=== PATIENT | female | born 1990 | race Caucasian/White ===

== ENCOUNTER 2017-07-22 09:34 | Inpatient (IN) | payer OTHER ==
[~2017-07-22] VITALS: Ht 165.1 cm; Wt 79.0 kg
[2017-07-22] VITALS (83 sets, daily range): BP systolic 91–152; BP diastolic 50–101; PULSE 56–126; RESP 16–20; TEMP 97.8–99.4
[~2017-07-22 09:34] MED LIST: MACR100C PO
[2017-07-22] MEDS ORDERED: LACTATED RINGER'S 1000 ML INJ 1,000 ML IV PRN (10:20)
--- NOTE | 2017-07-22 10:28 | HHI.HP ---
HPI Chief Complaint Water broke Date Seen: Jul 22, 2017 Time Seen: 10:22 Travel History International Travel<30 Days: No Contact w/Intl Traveler<30Days: No Known Affected Area: No History of Present Illness HPI 27-year-old white female at [address] Rubio for care presents complaining of her water leaking since early this morning. Her amnisure is positive today and she continues to leak fluid. heart rate tracing is reactive she is rubin irregularly Weeks Gestation: 38 Para: 0 : 2 Miscarriage: 1 History Past Medical History Narrative Medical Asthma with as needed inhaler Obstetric History Obstetric History 1 early loss Social History Alcohol Use: No Tobacco Use: No Substance Abuse: No Allergies-Medications (Allergen,Severity, Reaction): Coded Allergies: fexofenadine (Unverified Allergy, Mild, HIVES, 12/04/16) Home Meds Active Scripts Nitrofurantoin Monohyd Macro (Macrobid) 100 Mg Cap, 100 MG PO BID for 7 Days, CAP Prov:Kun Alcaraz MD 01/26/16 Review of Systems General / Constitutional: No: Fever, Weight Gain, Chills, Other Eyes: No: Diploplia, Blurred Vision, Visual changes, Pain, Photophobia HENT: No: Headaches, Vertigo, Lightheadedness Cardiovascular: No: Irregular Rhythm, Chest Pain or Discomfort, Palpitations, Tachycardia, Syncope, Varicosities, Edema, Cyanosis Respiratory: No: Cough, Short of Breath, Other Gastrointestinal: No: Nausea, Vomiting, Diarrhea Genitourinary: No: Decreased Urinary Output, Oliguria Musculoskeletal: No: Limited ROM, Weakness, Cramping, Edema, Pain Skin: No Rash, No Itching, No Dryness, No Lumps, No Change in Pigmentation, No Change in Nails, No Alopecia, No Lesions Neurologic: No: Weakness, Dizziness, Syncope, Focal Abnormalities, Coordination Problem, Headache, Slurred Speech, Seizures Psychiatric: No: Depression, Suicidal Ideations, Homicidal Ideation Endocrine: No: Heat Intolerance, Cold Intolerance, Polydipsia, Polyuria, Other Physical Exam Narrative GENERAL: Well-nourished, well-developed patient. SKIN: Warm and dry. HEAD: Normocephalic and atraumatic. EYES: No scleral icterus. No injection or drainage. ENT: No nasal drainage noted. Mucous membranes pink. Airway patent. NECK: Supple, trachea midline. No JVD. CARDIOVASCULAR: Regular rate and rhythm without murmurs, gallops, or rubs. RESPIRATORY: Breath sounds equal bilaterally. No accessory muscle use. BREASTS: Bilateral exam showed no masses , no retractions, no nipple discharge. ABDOMEN/GI: Abdomen soft, non-tender, bowel sounds present, no rebound, no guarding Gravid to [-38] weeks size Fundal Height: [38-] GENITOURINARY: External Genitalia: intact and normal in appearance BUS glands: [-] Cervix: [-post] Dilatation: [-2-3] Effacement: [60-] Station: [-1] Presentation: [-vtx] Membranes: [ ruptured] Uterine Contractions: [CTXs irreg-] FHT's: Category: [-1] Baseline: [-133] Reactive: [R-] Variability: [-mod] Decels: [-none] EXTREMITIES: No cyanosis or edema. BACK: Nontender without obvious deformity. No CVA tenderness. NEUROLOGICAL: Awake and alert. Motor and sensory grossly within normal limits. Five out of 5 muscle strength in all muscle groups. Normal speech. Caprini VTE Risk Assessment Caprini VTE Risk Assessment: No/Low Risk (score <= 1) Caprini Risk Assessment Model Point Value = 1 Point Value = 2 Point Value = 3 Point Value = 5 Age 41-60 Minor surgery BMI > 25 kg/m2 Swollen legs Varicose veins or History of unexplained or recurrent spontaneous Oral contraceptives or hormone replacement Sepsis (< 1 month) Serious lung disease, including pneumonia (< 1 month) Abnormal pulmonary function Acute myocardial infarction Congestive heart failure (< 1 month) History of inflammatory bowel disease Medical patient at bed rest Age 61-74 Arthroscopic surgery Major open surgery (> 45 min) Laparoscopic surgery (> 45 min) Malignancy Confined to bed (> 72 hours) Immobilizing plaster cast Central venous access Age >= 75 History of VTE Family history of VTE Factor V Leiden Prothrombin [id number] Lupus anticoagulant Anticardiolipin antibodies Elevated serum homocysteine Heparin-induced thrombocytopenia Other congenital or acquired thrombophilia Stroke (< 1 month) Elective arthroplasty Hip, pelvis, or leg fracture Acute spinal cord injury (< 1 month) Prophylaxis Regimen Total Risk Factor Score Risk Level Prophylaxis Regimen 0-1 Low Early ambulation 2 Moderate Order ONE of the following: *Sequential Compression Device (SCD) *Heparin 5000 units SQ BID 3-4 Higher Order ONE of the following medications: *Heparin 5000 units SQ TID *Enoxaparin/Lovenox 40 mg SQ daily (WT < 150 kg, CrCl > 30 mL/min) *Enoxaparin/Lovenox 30 mg SQ daily (WT < 150 kg, CrCl > 10-29 mL/min) *Enoxaparin/Lovenox 30 mg SQ BID (WT < 150 kg, CrCl > 30 mL/min) AND/OR *Sequential Compression Device (SCD) 5 or more Highest Order ONE of the following medications: *Heparin 5000 units SQ TID (Preferred with Epidurals) *Enoxaparin/Lovenox 40 mg SQ daily (WT < 150 kg, CrCl > 30 mL/min) *Enoxaparin/Lovenox 30 mg SQ daily (WT < 150 kg, CrCl > 10-29 mL/min) *Enoxaparin/Lovenox 30 mg SQ BID (WT < 150 kg, CrCl > 30 mL/min) AND *Sequential Compression Device (SCD) Data Data Orders Orders Ob (2e) Additional Admit Info (07/22/17 10:14) Admit To Inpatient (07/22/17 ) Vital Signs (Adult) .Per protocol (07/22/17 10:20) Heart (07/22/17 10:20) Amnioinfusion (07/22/17 10:20) Urinary Catheter Management .ONCE (07/22/17 10:20) Diet Npo (07/22/17 Lunch) Lactated Ringer's 1000 Ml Inj (Lr 1000 M (07/22/17 10:20) Lactated Ringer's 1000 Ml Inj (Lr 1000 M (07/22/17 10:20) Sodium Chlorid 0.9% 500 Ml Inj (Ns 500 M (07/22/17 10:30) Sodium Chlor 0.9% 1000 Ml Inj (Ns 1000 M (07/22/17 10:40) Lidocaine 1% Inj (50 Ml) (Xylocaine 1% I (07/22/17 10:30) Citric Acid-Sodium Citrate Liq (Bicitra (07/22/17 10:30) Fentanyl Inj (Fentanyl Inj) (07/22/17 10:30) Fentanyl Inj (Fentanyl Inj) (07/22/17 10:30) Complete Blood Count With Diff (07/22/17 10:20) Hold Clot (07/22/17 10:20) Abo/Rh Blood Type (07/22/17 10:20) Urinalysis - C+S If Indicated (07/22/17 10:20) Drug Screen, Random Urine (07/22/17 10:20) Ob/Psych Drug Screen, Urine (07/22/17 10:20) Type And Screen (07/22/17 10:20) Resp Oxygen Non Rebreathe Mask (07/22/17 ) ^ Epidural / Intrathecal Infus (07/22/17 10:20) Oxytocin 30 Units-500ml Premix (Pitocin (07/22/17 10:30) Lidocaine 1% Inj (50 Ml) (Xylocaine 1% I (07/22/17 10:30) Light Mineral Oil (Muri-Lube Oil) (07/22/17 10:30) Group B Strep: Negative Assessment/Plan Assessment and Plan Patient is 27-year-old white female at 38 weeks with spontaneous rupture membranes and early contractions. Will discuss with Dr. Rubio admission and she will need augmentation with Pitocin Kenroy Jaime II, MD Jul 22, 2017 10:28
[2017-07-22] MEDS ORDERED: LIDOCAINE HCL 1% 50 ML VIAL INFIL PRN (10:30)
[2017-07-22] MEDS ORDERED: OXYTOCIN 30 UNITS-500ML PREMIX 500 ML IV ONE (10:30)
[2017-07-22] MEDS ORDERED: SODIUM CHLORID 0.9% 500 ML INJ 500 ML IV PRN (10:30)
[2017-07-22] MEDS ORDERED: CITRIC ACID-SODIUM CITRATE LIQ 30 ML UDC PO SCH (10:30)
[2017-07-22] MEDS ORDERED: LIDOCAINE HCL 1% 50 ML VIAL I-DERMAL PRN (10:30)
[2017-07-22] MEDS ORDERED: MINERAL OIL 10 ML VIAL TOPICAL PRN (10:30)
[2017-07-22] MEDS ORDERED: SODIUM CHLOR 0.9% 1000 ML INJ 1,000 ML IV PRN (10:40)
[2017-07-22] MEDS ORDERED: OXYTOCIN 30 UNITS-500ML PREMIX 500 ML IV PRN (11:00)
[2017-07-22 11:50] LABS: BASOPHIL % 0.4 % (0.0-2.0); EOSINOPHIL # 0.4 TH/MM3 (0-0.4); EOSINOPHIL % 3.5 % (0.0-4.0); HEMATOCRIT 39.7 % (35.0-46.0); HEMOGLOBIN 13.4 GM/DL (11.6-15.3); LYMPH % 23.3 % (9.0-44.0); LYMPHOCYTE # 2.5 TH/MM3 (1.0-4.8); MEAN CELL VOLUME 82.7 FL (80.0-100.0); MEAN CORPUSCULAR HGB CONC 33.9 % (32.0-36.0); MEAN PLATELET VOLUME 9.3 FL (7.0-11.0); MONOCYTE # 0.9 TH/MM3 (0-0.9); NEUT % 64.8 % (16.0-70.0); PLATELET COUNT 197 TH/MM3 (150-450); RED CELL DISTRIBUTION WIDTH 13.4 % (11.6-17.2); WHITE BLOOD COUNT 10.8 TH/MM3 (4.0-11.0)
[2017-07-22 11:58] LABS: BACTERIA, URINE FEW /hpf; BILIRUBIN, URINE NEG (NEG); BLOOD, URINE SMALL (NEG); GLUCOSE,URINE NEG (NEG); KETONE, URINE NEG (NEG); NITRITE,URINE NEG (NEG); PH, URINE 7.5 (5.0-8.5); SQUAMOUS EPITHELIAL CELL URINE 47 /hpf (0-5); URINE COLOR LIGHT-YELLOW (YELLW/STRAW); URINE LEUKOCYTE ESTERASE NEG (NEG)
[2017-07-22] MEDS: LACTATED RINGER'S 1000 ML INJ 1,000 ML IV SCH ×2 (12:00→12:41)
[2017-07-22] MEDS ORDERED: fentaNYL 2MCG-BUPIV 0.125% INJ 100 ML ONE (13:35)
[2017-07-22] MEDS ORDERED: ePHEDrine/NS 25 MG/5 ML SYRINGE ONE (14:42)
[2017-07-22] MEDS ORDERED: ePHEDrine/NS 25 MG/5 ML SYRINGE IV PUSH PRN (15:15)
[2017-07-22] MEDS ORDERED: fentaNYL 2MCG-BUPIV 0.125% 100 ML EPIDURAL SCH (15:15)
[2017-07-22] MEDS ORDERED: DO NOT ADMINISTER ANTICOAGULANTS PRN (15:15)
[2017-07-22] MEDS ORDERED: NO SYSTEM NARCOTICS PRN (15:15)
[2017-07-22] MEDS ORDERED: DIPHTH/TETANUS/ACEL PERTUSSIS (BOOSTER) 0.5 ML VIAL/PFS IM ONE (16:00)
[2017-07-22] MEDS ORDERED: MEASLES, MUMPS, RUBELLA VACCINE 0.5 ML VIAL SQ ONE (16:00)
--- NOTE | 2017-07-22 17:11 | PD.LABORPN ---
Subjective Subjective feeling comfortable s/p epidural but anxious Objective Vital Signs Vital Signs Date Time Temp Pulse Resp B/P (MAP) Pulse Ox O2 Delivery O2 Flow Rate FiO2 07/22/17 16:55 88 07/22/17 16:50 93 07/22/17 16:45 91 136/95 (109) 07/22/17 16:45 91 07/22/17 16:40 110 07/22/17 16:35 104 07/22/17 16:30 91 124/98 (107) 07/22/17 16:12 97.8 07/22/17 16:10 73 07/22/17 16:05 99 07/22/17 16:00 20 07/22/17 16:00 109 114/82 (93) 07/22/17 16:00 63 07/22/17 15:55 73 07/22/17 15:50 75 07/22/17 15:45 109 07/22/17 15:45 75 119/77 (91) 07/22/17 15:32 67 110/78 (89) 07/22/17 15:30 16 07/22/17 15:30 70 115/75 (88) 07/22/17 15:30 72 07/22/17 15:25 90 120/73 (89) 07/22/17 15:25 63 07/22/17 15:20 67 111/69 (83) 07/22/17 15:20 64 07/22/17 15:16 83 115/73 (87) 07/22/17 15:15 74 07/22/17 15:10 79 106/71 (83) 07/22/17 15:10 74 07/22/17 15:06 17 07/22/17 15:05 64 07/22/17 15:05 101 110/71 (84) 07/22/17 15:01 87 96/69 (78) 07/22/17 15:00 84 07/22/17 15:00 18 07/22/17 14:55 87 118/66 (83) 07/22/17 14:55 89 07/22/17 14:53 85 109/68 (82) 07/22/17 14:50 80 07/22/17 14:50 92 94/63 (73) 07/22/17 14:47 96 119/52 (74) 07/22/17 14:45 17 07/22/17 14:45 56 07/22/17 14:45 65 121/75 (90) 07/22/17 14:44 66 92/52 (65) 07/22/17 14:41 93 91/50 (64) 07/22/17 14:40 87 07/22/17 14:37 79 126/78 (94) 07/22/17 14:36 97 132/88 (103) 07/22/17 14:35 76 07/22/17 14:35 90 142/101 (115) 07/22/17 14:30 20 07/22/17 14:30 80 137/96 (110) 07/22/17 14:30 94 07/22/17 14:25 76 07/22/17 14:20 65 07/22/17 14:20 64 122/75 (91) 07/22/17 14:15 64 125/83 (97) 07/22/17 14:15 67 07/22/17 14:10 63 17 07/22/17 14:10 128/66 (86) 07/22/17 14:10 69 07/22/17 14:05 120/70 (87) 07/22/17 14:05 60 07/22/17 14:05 66 07/22/17 14:03 78 07/22/17 14:03 63 07/22/17 14:03 111/70 (84) 07/22/17 14:00 152/83 (106) 07/22/17 14:00 87 07/22/17 14:00 91 07/22/17 13:24 20 07/22/17 12:50 17 07/22/17 12:46 73 113/77 (89) 07/22/17 11:45 16 Objective Pelvic Exam: Cervix: [posterior, stretchy] Dilatation: [7-8] Effacement: 80] Station: [0] Presentation: [vtx] Membranes: ruptured clear since 6am Uterine Contractions: [q4 min] FHT's: Category: [I] Baseline: [130s] Reactive: [y] Variability: [y] Decels: [y early] Weeks Gestation: 38 Assessment/Plan Problem List: (1) Labor and delivery indication for care or intervention ICD Codes: O75.9 - Complication of labor and delivery, unspecified Status: Acute (2) Leakage of amniotic fluid ICD Codes: O42.90 - Premature rupture of membranes, unspecified as to length of time between rupture and onset of labor, unspecified weeks of gestation Status: Acute (3) Term ICD Codes: Z34.80 - Encounter for supervision of other normal , unspecified trimester Status: Acute Assessment and Plan 27 yo with castorena IUP at 38 wks admit for SROM, now augmented with pitocin in labor progressing well, reassurance, tracing improved with IUPC and amnioinfusion, continue active mgmt, anticipate Tahmina Castillo MD Jul 22, 2017 17:11
[2017-07-22] MEDS ORDERED: LIDOCAINE HCL 1% PF 30 ML VIAL ONE (18:51)
[2017-07-22] MEDS ORDERED: ALUMINUM/MAGNESIUM/SIMETH 30 ML CUP PO PRN (20:00)
[2017-07-22] MEDS ORDERED: BENZOCAINE 20% TOPICAL SPRAY 60 ML CAN TOPICAL PRN (20:00)
[2017-07-22] MEDS ORDERED: ZOLPIDEM TARTRATE 5 MG TAB PO PRN (20:00)
[2017-07-22] MEDS ORDERED: OXYTOCIN 30 UNITS-500ML PREMIX 500 ML IV SCH (20:00)
[2017-07-22] MEDS ORDERED: SODIUM CHLORIDE 0.9% FLUSH 10 ML FLUSH IV FLUSH PRN (20:00)
[2017-07-22] MEDS ORDERED: ONDANSETRON ODT 4 MG TAB PO PRN (20:00)
[2017-07-22] MEDS ORDERED: WITCH HAZEL 50%/GLYCERIN 12.5% 40 PAD JAR TOPICAL PRN (20:00)
[2017-07-22] MEDS ORDERED: oxyCODONE/ACETAMINOPHEN 5 MG/325 MG TAB PO PRN (20:00)
--- NOTE | 2017-07-22 20:02 | PD.OB.DELI ---
Weeks gestation: 38 Anesthesia: Epidural Episiotomy: None Vaginal Delivery: Normal, Spontaneous Presentation: Occiput anterior Nuchal Cord: None Delayed cord clamping (45 sec): Yes : Male Delivery date: Jul 22, 2017 Delivery time: 19:41 One Minute : 8 Five Minute : 8 Placenta: Spontaneous delivery, Intact, 3 vessel cord Laceration: Perineal laceration, 2 deg Repair: Chromic running Estimated blood loss: 100 mL Additional Information uncomplicated of healthy male infant "Tahmina Cheema MD Jul 22, 2017 20:02
[2017-07-23] MEDS: IBUPROFEN 800 MG TAB PO PRN ×3 (00:36→17:50)
[2017-07-23] MEDS: DOCUSATE SODIUM 50 MG/SENNA 8.6 MG TAB PO PRN (05:09)
[2017-07-23] MEDS: oxyCODONE/ACETAMINOPHEN 5 MG/325 MG TAB PO PRN ×3 (05:09→17:50)
[2017-07-23 08:00] VITALS: BP 117/77; PULSE 73; RESP 18; TEMP 98; O2SAT 97
--- NOTE | 2017-07-23 08:15 | HHI.OB ---
Subjective Post Day: 1 Remarks concerned about nursing no signiifcant pain Objective Vitals/I&O Vital Signs Date Time Temp Pulse Resp B/P (MAP) Pulse Ox O2 Delivery O2 Flow Rate FiO2 07/22/17 21:28 99 125/75 (92) 07/22/17 21:27 16 07/22/17 20:50 18 07/22/17 20:49 130/82 (98) 07/22/17 20:49 98 07/22/17 20:31 110 18 118/78 (91) 07/22/17 20:16 97 18 117/75 (89) 07/22/17 20:04 101 18 129/53 (78) 07/22/17 19:20 99.4 07/22/17 19:19 18 07/22/17 19:15 87 109/76 (87) 07/22/17 18:58 99.2 19 07/22/17 18:55 99 07/22/17 18:50 100 07/22/17 18:45 96 108/68 (81) 07/22/17 18:45 88 07/22/17 18:42 18 07/22/17 18:40 93 07/22/17 18:35 80 07/22/17 18:30 19 07/22/17 18:30 108 106/62 (77) 07/22/17 18:30 126 07/22/17 18:25 101 07/22/17 18:20 91 07/22/17 18:15 82 129/88 (102) 07/22/17 18:15 86 07/22/17 18:12 20 07/22/17 18:10 89 07/22/17 18:05 88 07/22/17 18:00 90 07/22/17 18:00 93 129/88 (102) 07/22/17 18:00 17 07/22/17 17:55 81 07/22/17 17:50 91 07/22/17 17:46 92 116/79 (91) 07/22/17 17:45 90 07/22/17 17:29 18 07/22/17 17:25 99 07/22/17 17:20 89 07/22/17 17:15 17 07/22/17 17:15 77 07/22/17 17:15 81 129/88 (102) 07/22/17 17:10 78 07/22/17 17:05 82 07/22/17 17:00 76 07/22/17 17:00 78 127/85 (99) 07/22/17 16:55 88 07/22/17 16:50 93 07/22/17 16:45 91 136/95 (109) 07/22/17 16:45 91 07/22/17 16:40 110 07/22/17 16:35 104 07/22/17 16:30 91 124/98 (107) 07/22/17 16:12 97.8 07/22/17 16:10 73 07/22/17 16:05 99 07/22/17 16:00 20 07/22/17 16:00 109 114/82 (93) 07/22/17 16:00 63 07/22/17 15:55 73 07/22/17 15:50 75 07/22/17 15:45 109 07/22/17 15:45 75 119/77 (91) 07/22/17 15:32 67 110/78 (89) 07/22/17 15:30 16 07/22/17 15:30 70 115/75 (88) 07/22/17 15:30 72 07/22/17 15:25 90 120/73 (89) 07/22/17 15:25 63 07/22/17 15:20 67 111/69 (83) 07/22/17 15:20 64 07/22/17 15:16 83 115/73 (87) 07/22/17 15:15 74 07/22/17 15:10 79 106/71 (83) 07/22/17 15:10 74 07/22/17 15:06 17 07/22/17 15:05 64 07/22/17 15:05 101 110/71 (84) 07/22/17 15:01 87 96/69 (78) 07/22/17 15:00 84 07/22/17 15:00 18 07/22/17 14:55 87 118/66 (83) 07/22/17 14:55 89 07/22/17 14:53 85 109/68 (82) 07/22/17 14:50 80 07/22/17 14:50 92 94/63 (73) 07/22/17 14:47 96 119/52 (74) 07/22/17 14:45 17 07/22/17 14:45 56 07/22/17 14:45 65 121/75 (90) 07/22/17 14:44 66 92/52 (65) 07/22/17 14:41 93 91/50 (64) 07/22/17 14:40 87 07/22/17 14:37 79 126/78 (94) 07/22/17 14:36 97 132/88 (103) 07/22/17 14:35 76 07/22/17 14:35 90 142/101 (115) 07/22/17 14:30 20 07/22/17 14:30 80 137/96 (110) 07/22/17 14:30 94 07/22/17 14:25 76 07/22/17 14:20 65 07/22/17 14:20 64 122/75 (91) 07/22/17 14:15 64 125/83 (97) 07/22/17 14:15 67 07/22/17 14:10 63 17 07/22/17 14:10 128/66 (86) 07/22/17 14:10 69 07/22/17 14:05 120/70 (87) 07/22/17 14:05 60 07/22/17 14:05 66 07/22/17 14:03 78 07/22/17 14:03 63 07/22/17 14:03 111/70 (84) 07/22/17 14:00 152/83 (106) 07/22/17 14:00 87 07/22/17 14:00 91 07/22/17 13:24 20 07/22/17 12:50 17 07/22/17 12:46 73 113/77 (89) 07/22/17 11:45 16 Objective Remarks GENERAL: Well-nourished, well-developed patient. CARDIOVASCULAR: Regular rate and rhythm without murmurs, gallops, or rubs. RESPIRATORY: Breath sounds equal bilaterally. No accessory muscle use. ABDOMEN/GI: Abdomen soft, non-tender. Fundus: Firm, non-tender at umbilicus. GENITOURINARY: Light to moderate bleeding. EXTREMITIES: No cyanosis or edema, non-tender, without signs of DVT. Medications and IVs Current Medications Medications (Trade) Dose Ordered Sig/Mirta Route Start Time Stop Time Status Last Admin (NS Flush) 2 ml BID IV FLUSH 07/22/17 21:00 (NS Flush) 2 ml UNSCH PRN IV FLUSH 07/22/17 20:00 (Tylenol) 650 mg Q4H PRN PO 07/22/17 20:00 (Motrin) 800 mg Q8H PRN PO 07/22/17 20:00 07/23/17 00:36 (Percocet 5-325 Mg) 1 tab Q4H PRN PO 07/22/17 20:00 07/23/17 05:09 (Percocet 5-325 Mg) 2 tab Q4H PRN PO 07/22/17 20:00 (Americaine 20% Top Spr) 1 spray Q4H PRN TOPICAL 07/22/17 20:00 07/23/17 00:36 (Tucks Pads) 1 applic QID PRN TOPICAL 07/22/17 20:00 07/23/17 00:36 (Jennifer-Colace) 2 tab Q12H PRN PO 07/22/17 20:00 07/23/17 05:09 (Ambien) 5 mg HS PRN PO 07/22/17 20:00 (Mag-Al Plus Susp Liq) 15 ml Q8H PRN PO 07/22/17 20:00 (Zofran Odt) 4 mg Q6H PRN PO 07/22/17 20:00 Assessment/Plan Problem List: (1) Labor and delivery indication for care or intervention ICD Codes: O75.9 - Complication of labor and delivery, unspecified Status: Acute (2) Leakage of amniotic fluid ICD Codes: O42.90 - Premature rupture of membranes, unspecified as to length of time between rupture and onset of labor, unspecified weeks of gestation Status: Acute (3) Term ICD Codes: Z34.80 - Encounter for supervision of other normal , unspecified trimester Status: Acute Assessment and Plan Patient is 27-year-old white female at 38 weeks with spontaneous rupture membranes and early contractions. Will discuss with Dr. Rubio admission and she will need augmentation with Pitocin Unremarkable PPD 1 will post pone circumcision until nursing established Kaci Cohen MD Jul 23, 2017 08:15
[2017-07-23] MEDS: SODIUM CHLORIDE 0.9% FLUSH 10 ML FLUSH IV FLUSH SCH ×2 (08:38→20:13)
[2017-07-23 20:37] VITALS: BP 126/78; PULSE 76; RESP 17; TEMP 98
[2017-07-24] MEDS: DOCUSATE SODIUM 50 MG/SENNA 8.6 MG TAB PO PRN (01:21)
[2017-07-24] MEDS: ACETAMINOPHEN 325 MG TAB PO PRN ×3 (01:22→15:15)
[2017-07-24] MEDS: IBUPROFEN 800 MG TAB PO PRN ×2 (01:22→09:28)
[2017-07-24 08:00] VITALS: BP 106/72; PULSE 84; RESP 18; TEMP 97.8; O2SAT 96
--- NOTE | 2017-07-24 08:09 | HHI.OB ---
Subjective Post Day: 2 Remarks PPD#2, Doing well, has issues with BF, poor latching.is bottle feeding Objective Vitals/I&O Vital Signs Date Time Temp Pulse Resp B/P (MAP) Pulse Ox O2 Delivery O2 Flow Rate FiO2 07/23/17 20:37 98.0 76 17 126/78 (94) Objective Remarks GENERAL: Well-nourished, well-developed patient. CARDIOVASCULAR: Regular rate and rhythm without murmurs, gallops, or rubs. RESPIRATORY: Breath sounds equal bilaterally. No accessory muscle use. ABDOMEN/GI: Abdomen soft, non-tender. Fundus: Firm, non-tender at umbilicus. GENITOURINARY: Light to moderate bleeding. EXTREMITIES: No cyanosis or edema, non-tender, without signs of DVT. Medications and IVs Current Medications Medications (Trade) Dose Ordered Sig/Mirta Route Start Time Stop Time Status Last Admin (NS Flush) 2 ml BID IV FLUSH 07/22/17 21:00 (NS Flush) 2 ml UNSCH PRN IV FLUSH 07/22/17 20:00 (Tylenol) 650 mg Q4H PRN PO 07/22/17 20:00 07/24/17 01:22 (Motrin) 800 mg Q8H PRN PO 07/22/17 20:00 07/24/17 01:22 (Percocet 5-325 Mg) 1 tab Q4H PRN PO 07/22/17 20:00 07/23/17 17:50 (Percocet 5-325 Mg) 2 tab Q4H PRN PO 07/22/17 20:00 (Americaine 20% Top Spr) 1 spray Q4H PRN TOPICAL 07/22/17 20:00 07/23/17 00:36 (Tucks Pads) 1 applic QID PRN TOPICAL 07/22/17 20:00 07/23/17 00:36 (Jennifer-Colace) 2 tab Q12H PRN PO 07/22/17 20:00 07/24/17 01:21 (Ambien) 5 mg HS PRN PO 07/22/17 20:00 (Mag-Al Plus Susp Liq) 15 ml Q8H PRN PO 07/22/17 20:00 (Zofran Odt) 4 mg Q6H PRN PO 07/22/17 20:00 Assessment/Plan Problem List: (1) Labor and delivery indication for care or intervention ICD Codes: O75.9 - Complication of labor and delivery, unspecified Status: Acute (2) Leakage of amniotic fluid ICD Codes: O42.90 - Premature rupture of membranes, unspecified as to length of time between rupture and onset of labor, unspecified weeks of gestation Status: Acute (3) Term ICD Codes: Z34.80 - Encounter for supervision of other normal , unspecified trimester Status: Acute Assessment and Plan PPD#2; Cleared for discharge. Discharge Planning routine Attending Attestation seen by Milind Hardy MD Jul 24, 2017 08:09
--- NOTE | 2017-07-24 08:09 | HHI.DS ---
Admission Date Jul 22, 2017 at 10:21 Admitting Diagnosis Diagnosis: Delivery Date: Jul 22, 2017 : Male Brief History 27-year-old white female at [address] Rubio for care presents complaining of her water leaking since early this morning. Her amnisure is positive today and she continues to leak fluid. heart rate tracing is reactive she is rubin irregularly Pt Condition on Discharge: Good Discharge Disposition: Discharge Home Discharge Instructions Diet Instructions: As Tolerated, No Restrictions Activities You Can Perform: Shower Only-No Bath Activities to Avoid: Driving for 24 hrs, Prolonged Standing, Strenuous Activity , Sexual Activity Milind Masters MD Jul 24, 2017 08:09
[2017-07-24] MEDS: SODIUM CHLORIDE 0.9% FLUSH 10 ML FLUSH IV FLUSH SCH (08:41)
[2017-07-24] MEDS ORDERED: SIMETHICONE 80 MG CHEWABLE TAB CHEW PRN (12:30)
== END 2017-07-24 17:37 | disposition home or self-care (01) | DRG 775 ==
LOC: HOBED 09:34 → H2EB 10:21 → H1EA 22:26
PROVIDERS: ADMIT Obstetrics & Gynecology; ATTEND Obstetrics & Gynecology
PROC: 10E0XZZ Delivery of Products of Conception, External Approach (ICD-10-PCS; principal; 2017-07-22)
PROC: 10H07YZ Insertion of Other Device into Products of Conception, Via Natural or Artificial Opening (ICD-10-PCS; 2017-07-22)
PROC: 0KQM0ZZ Repair Perineum Muscle, Open Approach (ICD-10-PCS; 2017-07-22)
PROC: 3E0E7GC Introduction of Other Therapeutic Substance into Products of Conception, Via Natural or Artificial Opening (ICD-10-PCS; 2017-07-22)
DX: O42.02 Full-term premature rupture of membranes, onset of labor within 24 hours of rupture (principal); J45.909 Unspecified asthma, uncomplicated; Z37.0 Single live birth; O99.52 Diseases of the respiratory system complicating childbirth; Z3A.38 38 weeks gestation of pregnancy; O70.1 Second degree perineal laceration during delivery
CPT/HCPCS: 59025; 80307; 81001; 84112; 85025; 86850; 86900; 86901; 87086; G0481; J2590; J3010; J7120